=== PATIENT | female | born 1995 ===

== ENCOUNTER 2021-07-10 13:42 | Emergency (ER) | payer SELFPAY ==
[2021-07-10 13:50] VITALS: BP 117/82; PULSE 78; TEMP 98.8; BMI 20.8
[2021-07-10 14:50] LABS: EPITHELIAL CELLS FEW /hpf
[2021-07-10] MEDS ORDERED: SULFAMETHOXAZOLE/TRIMETHOPRIM 800MG/160MG D.S. TABLET PO ONE (15:55)
[2021-07-10] MEDS ORDERED: SULFAMETHOXAZOLE/TRIMETHOPRIM 800MG/160MG D.S. TABLET ONE (16:11)
== END 2021-07-10 16:13 | disposition home or self-care (01) ==
LOC: FER 13:42
DX: N93.8 Other specified abnormal uterine and vaginal bleeding (principal); N30.01 Acute cystitis with hematuria
CPT/HCPCS: 81003; 81015; 81025; 87086; 87186; 99283-25